=== PATIENT | female | born 1945 | race Caucasian/White ===

== ENCOUNTER 2019-12-09 11:06 | Outpatient (CLI) | payer MEDICARE, OTHER, SELFPAY ==
[2019-12-09 11:38] LABS: ABG PCO2 40.3 mmHg (35-45); ABG PH Result 7.43 (7.35-7.45); Arterial Blood Gas Hematocrit 41.7 % (37-47); Blood Gas Allen Test Pos; Blood Gas Sample Site Radial, right; Blood Gas Sample Type Arterial; HCO3 ABG 26.6 mmol/L (22-26); PO2 ABG 72.1 mmHg (80.0-100.0)
== END 2019-12-09 11:07 | disposition home or self-care (01) ==
PROVIDERS: Family Provider Family Medicine; PCP Family Medicine; Visit Provider Internal Medicine Critical Care Medicine
DX: R06.89 Other abnormalities of breathing (principal)
CPT/HCPCS: 36600; 82803

== ENCOUNTER 2019-12-25 07:22 | Day surgery (SDC) | payer MEDICARE, OTHER, SELFPAY ==
[2019-12-24 10:24] VITALS: BMI 33.8
[2019-12-25 07:47] VITALS: BP 126/68; PULSE 51; RESP 18; TEMP 36.9; O2SAT 94
[2019-12-25] MEDS: sodium chloride 0.9% 1,000 ML 30 ML IV (08:00)
--- NOTE | 2019-12-25 08:24 | ANES.PREANES ---
Pre-Anesthetic Assessment Pre-Anesthetic Assessment: Height/Weight: Height 1.57 m Weight 83.915 kg Temp Pulse Resp BP Pulse Ox 98.5 F 51 L 18 126/68 94 12/25/19 07:47 12/25/19 07:47 12/25/19 07:47 12/25/19 07:47 12/25/19 07:47 Preop Diagnosis: bronchiolitis Proposed Procedure: Operation Date: 12/25/19 08:50 Proposed Procedures p Bronchoscopy(Not Applicable) - Radha Marques MD Familial anesthetic complications: None Was Beta Aixa taken within 24 hours: Yes Last intake: Intake Last Liquid Date 12/24/19 Last Liquid Time 23:45 Last Solid Date 12/24/19 Last Solid Time 16:00 Social: Social History: No alcohol and No tobacco Exam: Pre-Anes Outpt Exam: alert, oriented x 3, clear to auscultation bilaterally and regular rate & rhythm Airway: Cervical ROM: WNL MP: 4 Dentition: Full Pulmonary: Pulmonary: COPD Comments: bronchiolitis- hemoptysis (4 yrs ago) CV/HEM: CV/HEM: HTN : : None reported Hepatic: Hepatic: None reported GI: GI: None reported Metabolic: Metabolic: None reported Musc/skel: Musc/skel: None reported Neuropsych: Neuropsych: None reported Comments: CN III palsy Anesthetic Plan: ASA status: IV Anesthesia: General Risk of > 500 ml blood loss (7ml/kg in children): No Meds/Allergies Current Medications: Current Medications Generic Name Dose Route Start Last Admin Trade Name Freq PRN Reason Stop Dose Admin Sodium Chloride 1,000 mls @ 30 ml s/hr 12/25/19 07:30 12/25/19 08:00 Sodium Chloride 0.9% IV 12/26/19 07:29 30 mls/hr .Q24H QUENTIN Administration PFSH Anesthesia PFSH: Medical History (Updated 12/07/19 @ 14:54 by Radha Marques MD) Bronchiolitis (Acute) COPD (chronic obstructive pulmonary disease) (Acute) Presence of surgical screw in left hand (Acute) Pulmonary hypertension, unspecified (Acute) Surgical History (Updated 12/07/19 @ 14:48 by Radha Marques MD) H/O foot surgery (Acute) H/O hand surgery (Acute) H/O tubal ligation (Acute) History of appendectomy (Acute) History of bladder surgery (Acute) History of cholecystectomy (Acute) History of hysterectomy (Acute) Social History Smoking and tobacco status: never smoked Alcohol intake: never Lives independently: Yes Household members: spouse Marital status: Current occupational status: retired History of recent travel: No Current gender identity: Female Data Anesthesia Cardiac Studies: No Data to Display
--- NOTE | 2019-12-25 09:30 | PM.HPUD ---
H&P update H&P Update: DATE OF SURGERY/PROCEDURE: 12/25/19 DATE H&P PERFORMED: 12/07/19 PLANNED PROCEDURE: Operation Date: 12/25/19 08:50 Proposed Procedures p Bronchoscopy(Not Applicable) - Radha Marques MD Full H&P HPI: PRIMARY INDICATION/DIAGNOSIS FOR SURGICAL PROCEDURE: Bronchoscopy with inspection of the airway with bronchoalveolar lavage HPI: This is a 74-year-old female coming in for a bronchoscopy procedure for persistent tree-in-bud appearance on chest CT scan. The goal is to rule out nontuberculous mycobacterial infection. There is no significant change since she was last seen in office. Medications/Allergies: Current Medications: Current Medications Generic Name Dose Route Start Last Admin Trade Name Freq PRN Reason Stop Dose Admin Sodium Chloride 1,000 mls @ 30 ml s/hr 12/25/19 07:30 12/25/19 08:00 Sodium Chloride 0.9% IV 12/26/19 07:29 30 mls/hr .Q24H QUENTIN Administration Perinent History: Medical/Surgical History: Medical History (Updated 12/07/19 @ 14:54 by Radha Marques MD) Bronchiolitis (Acute) COPD (chronic obstructive pulmonary disease) (Acute) Presence of surgical screw in left hand (Acute) Pulmonary hypertension, unspecified (Acute) Family History: Family History (Updated 12/04/19 @ 09:33 by Anne Barahona LPN) Mother Cancer Father CAD (coronary artery disease) Stroke Hypertension Social History: Social History Smoking and tobacco status: never smoked Alcohol intake: never Lives independently: Yes Household members: spouse Marital status: Current occupational status: retired History of recent travel: No Current gender identity: Female
--- NOTE | 2019-12-25 10:33 | PM.OP ---
Operative Report Date of procedure: December 25, 2019 Pre-op Diagnosis: bronchiolitis Post-op diagnosis: same Brief History: This is a 74-year-old female coming in for a bronchoscopy with inspection of the airway and bronchoalveolar lavage for diagnosis of bronchiolitis. The patient has evidence of airflow limitation on pulmonary function test and on CT scan has diffuse tree-in-bud appearance suggestive of bronchiolitis. She does not have any rheumatologic disease that is been diagnosed in the past. The concern is for nontuberculous mycobacterial infection. Procedure: Name of the procedure: Bronchoscopy with inspection of the airway and bronchoalveolar lavage Indication: Chronic exertional shortness of breath with tree-in-bud appearance on the chest CT scan Anesthesia: Monitored anesthesia care. Local anesthesia: 1% lidocaine instilled on the vocal cords, 3 mL, 1% lidocaine in the airway and constantine a total of 5 mL. Description of the procedure: Patient was brought to the OR and monitored anesthesia care was started by the anesthesia team. A timeout was performed. The bronchoscope was advanced through the mouth. The vocal cords were anesthetized with 1% lidocaine, 3 mL. The bronchoscope was then introduced through the vocal cords into the upper trachea. There was generalized erythema of the trachea. The tracheal mucosa was extremely friable and bled very easily with the touch from the bronchoscope. The constantine was sharp. The constantine in the right and left mainstem bronchi were anesthetized with 1% lidocaine. In a systematic way the bronchoscope was then advanced throughout bilateral lungs. The left lung was examined first. The left mainstem bronchus appeared erythematous and also showed evidence of petechial bleeding with minimal touch from the bronchoscope. The left upper lobe bronchus, lingular segment and left lower lobe bronchi all appeared to have erythematous and swollen mucosa. And the all blade very easily with touch from the bronchoscope. There are areas of petechial bleed throughout the left lung possibly secondary to the scope trauma. There was no endobronchial lesion identified. However the third or fourth segmental bronchi on the left upper lobe had significantly swollen mucosa and the bronchoscope could not be advanced more. The bronchoscope was then brought back to the constantine and the right lung was examined. The right upper lobe bronchus, right bronchus intermedius, right middle lobe and lower lobe bronchi were all appeared to have swollen mucosa and also bled very easily to touch from the bronchoscope. There was no endobronchial lesion. A bronchoalveolar lavage was performed from the medial segment of the right middle lobe. There was no petechial hemorrhage at the beginning of the bronchoalveolar lavage however when I withdrew the scope there where areas of petechial hemorrhage. 60 cc of normal saline was introduced in the medial segment of the right middle lobe. 20 cc of cloudy bronchoalveolar lavage aspirate. Sample: The specimen was sent for cell count and differential, Gram stain and culture, AFB stain and culture, fungal stain and culture and viral PCR. Complications: There is no immediate complications. Follow-up: The patient follow-up with me as outpatient. I will get back to the patient once I have more result available. Duration of the procedure: 8 minutes.
[2019-12-25 10:34] VITALS: BP 116/68; PULSE 61; RESP 16; TEMP 36.9; O2SAT 96
[2019-12-25 11:00] VITALS: BP 108/52; PULSE 50; RESP 17; O2SAT 96
[2019-12-25 13:37] LABS: Apprearance, Bronch Wash Cloudy (CLEAR); Color, Bronc Wash Colorless
[2019-12-25 13:38] LABS: Bronch Source Right Middle Lobe; PATH Referral Yes
[2019-12-25 13:46] LABS: Total Cells Counted Bronch 300
[2019-12-30 01:12] LABS: Adenovirus Not Detected (Not Detected); Human Metapneumovirus Not Detected (Not Detected); Human Parainflu Virus 1 Not Detected (Not Detected); Human Parainflu Virus 2 Not Detected (Not Detected); Human Parainflu Virus 3 Not Detected (Not Detected); Human Rsv A Not Detected (Not Detected); Influenza A Not Detected (Not Detected); Influenza B Not Detected (Not Detected); Rhinovirus/Enterovirus Not Detected (Not Detected)
== END 2019-12-25 12:00 | disposition home or self-care (01) ==
PROVIDERS: Family Provider Family Medicine; PCP Family Medicine; Visit Provider Internal Medicine Critical Care Medicine
PROC: 0BJ08ZZ Inspection of Tracheobronchial Tree, Via Natural or Artificial Opening Endoscopic (ICD-10-PCS; CPT 31622; principal; 2019-12-25 08:50)
DX: J21.9 Acute bronchiolitis, unspecified (principal); Z82.49 Family history of ischemic heart disease and other diseases of the circulatory system; I10 Essential (primary) hypertension; Z79.82 Long term (current) use of aspirin
CPT/HCPCS: 31624; 12345; 80500; 87015; 87070; 87102; 87116; 87205; 87206; 87801; 89050; J2704; J7030

== ENCOUNTER 2020-01-15 11:15 | Outpatient (CLI) | payer MEDICARE, OTHER, SELFPAY ==
--- NOTE | 2020-01-15 13:13 | PFTS_ITS ---
Date of Study:01/15/2020 Date of Dictation: MECHANICS: Forced vital capacity (FVC) is reduced. Forced expiratory volume in one second (FEV1) is reduced. FEV1/FVC is normal. FLOW VOLUME LOOP: Narrowed with mild scooping. LUNG VOLUMES: Total lung capacity (TLC) is not measured. Residual volume (RV) is not measured. DIFFUSING CAPACITY FOR CARBON MONOXIDE: Not measured. INTERPRETATION: The pulmonary function tests are consistent with moderate restriction. Scooping of the flow volume loop is suggestive of obstruction. MTDD
== END 2020-01-15 11:16 | disposition home or self-care (01) ==
LOC: RT 06-13 13:02
PROVIDERS: PCP Family Medicine; Visit Provider Internal Medicine Critical Care Medicine
DX: J44.9 Chronic obstructive pulmonary disease, unspecified (principal); R06.89 Other abnormalities of breathing
CPT/HCPCS: 94010

== ENCOUNTER 2020-04-26 06:00 | Outpatient (RCR) | payer MEDICARE, OTHER, SELFPAY | END 2020-05-24 23:59 | disposition home or self-care (01) | LOC: APT 06:00 | PROVIDERS: PCP Family Medicine; Referring Provider Family Medicine; Visit Provider Family Medicine | DX: M75.101 Unspecified rotator cuff tear or rupture of right shoulder, not specified as traumatic (principal) | CPT/HCPCS: 97110; 97140; 97162 ==

== ENCOUNTER 2020-05-06 12:38 | Outpatient (CLI) | payer MEDICARE, OTHER, SELFPAY ==
--- NOTE | 2020-05-06 13:00 | CT_ITS ---
WS: [id number] CT CHEST TECHNIQUE: Noncontrast CT of the chest with coronal and sagittal reformatted images. CLINICAL INFORMATION: Shortness of breath COMPARISON: CTA chest July 10, 2019 DLP: 709.[address] scans at [facility] use at least one of these dose optimization techniques: automat ed exposure control; mA and/or kV adjustment per patient size (includes targeted exams where dose is matched to clinical indication); or iterative reconstruction. FINDINGS: Mild chronic emphysematous changes. Stable tree-in-bud opacities similar in appearance compared to pr evious more prominent in the right lower lobe, left upper lobe laterally along the fissure, and righ t middle lobe. Right middle lobe tree-in-bud infiltrates are improved from previous. New tree-in-bud infiltrates in the left lower lobe posteriorly. Calcified granulomas left lower lobe. A few unchanged subcentimeter subpleural nodules. No mediastinal or hilar lymphadenopathy. Normal th yroid gland. Small esophageal hiatal hernia. Splenic granulomas. Adrenal glands are normal. Fatty atrophy of the pancreas. No axillary lymphadenopathy. CT/CT chest wo con [id number] IMPRESSION: 1. Mild chronic emphysematous changes. 2. Tree-in-bud opacities are similar in appearance to previous slightly improv ed in the right middle lobe. 3. New patchy tree-in-bud opacities in the left lower lobe posteriorly. 4. No mediastinal or hilar lymphadenopathy. 5. No other significant changes from previous. 6. Small esophageal hiatal hernia.
== END 2020-05-06 12:39 | disposition home or self-care (01) ==
LOC: RADWPI 12:43
PROVIDERS: PCP Family Medicine; Visit Provider Internal Medicine Critical Care Medicine
DX: J21.9 Acute bronchiolitis, unspecified (principal); R06.02 Shortness of breath; K44.9 Diaphragmatic hernia without obstruction or gangrene
CPT/HCPCS: 71250

== ENCOUNTER 2020-05-25 06:00 | Outpatient (RCR) | payer MEDICARE, OTHER, SELFPAY | END 2020-06-24 23:59 | disposition home or self-care (01) | LOC: APT 06:00 | PROVIDERS: PCP Family Medicine; Referring Provider Family Medicine; Visit Provider Family Medicine | DX: M75.101 Unspecified rotator cuff tear or rupture of right shoulder, not specified as traumatic (principal) | CPT/HCPCS: 97110 ==

== ENCOUNTER 2021-03-14 12:41 | Outpatient (CLI) | payer MEDICARE, OTHER, SELFPAY ==
--- NOTE | 2021-03-14 12:50 | XRR_ITS ---
PROCEDURE INFORMATION: Exam: XR Right Shoulder Exam date and time: 03/14/2021 1:21 PM Age: 75 years old Clinical indication: Condition or disease; Osteoarthritis; Shoulder; Right; Additional info: R shoulder osteoarthritis TECHNIQUE: Imaging protocol: XR Right shoulder. Views: 2 or more views. COMPARISON: No relevant prior studies available. FINDINGS: Bones/joints: There is no evidence for acute fracture or malalignment. There is mild joint space narrowing at the right acromioclavicular joint. Soft tissues: Normal. XR/XR shoulder RT min 2V* [id number] IMPRESSION: No acute findings. If there is desire for further evaluation, a MRI could be performed.
== END 2021-03-14 12:42 | disposition home or self-care (01) ==
PROVIDERS: PCP Family Medicine; Visit Provider Family Medicine
DX: M19.011 Primary osteoarthritis, right shoulder (principal)
CPT/HCPCS: 73030

== ENCOUNTER 2021-05-04 14:51 | Outpatient (CLI) | payer MEDICARE, OTHER, SELFPAY ==
--- NOTE | 2021-05-04 15:15 | MR_ITS ---
WS: [id number] MRI RIGHT SHOULDER HISTORY: RIGHT SHOULDER PAIN COMPARISON: Shoulder radiograph 03/14/2021 TECHNIQUE: Multiplanar sequences of the shoulder joint are submitted. Mild AC joint hypertrophy. Osteophyte and soft tissue encroachment upon the supraspinatus tendon. The re is a small amount of fluid in the subacromial and subdeltoid bursa. No os acromion. Partial sublux ation of the biceps tendon. Biceps tendon is small caliber with increased fluid in the tendon sheath. Insertion site tear involving the inferior articular surface. No retraction of the tendon. There is t endinopathy. There is an osteophyte encroaching upon the supraspinatus tendon over the superior humer al head. This osteophyte is from the acromion. Small amount of fluid in the subscapularis recess. Mil d encroachment upon the subscapularis tendon by narrowing of the coracohumeral interval. Mild glenohumeral joint space narrowing. Mild loss of the cartilage at the glenoid MR/MR shoulder RT wo con* [id number] IMPRESSION: 1. Partial insertion site tear inferior surface of the supraspinatus with mild muscle atrophy. 2. Moderate glenohumeral joint space osteoarthritis with loss of cartilage. 3. Moderate tendinopathy of the supraspinatus. 4. Mild AC joint hypertrophy. 5. Moderate encroachment and narrowing of the coracohumeral interval and also the acromiohumeral interval.
== END 2021-05-04 14:52 | disposition home or self-care (01) ==
LOC: RADSHAW 14:55
PROVIDERS: PCP Family Medicine; Visit Provider Family Medicine
DX: M25.511 Pain in right shoulder (principal); M19.011 Primary osteoarthritis, right shoulder
CPT/HCPCS: 73221

== ENCOUNTER 2021-05-31 06:00 | Outpatient (RCR) | payer MEDICARE, OTHER, SELFPAY | END 2021-06-24 23:59 | disposition home or self-care (01) | LOC: APT 06:00 | PROVIDERS: PCP Family Medicine; Referring Provider Specialist; Visit Provider Specialist | DX: M25.511 Pain in right shoulder (principal) | CPT/HCPCS: 97110; 97112; 97161 ==

== ENCOUNTER 2021-06-25 06:00 | Outpatient (RCR) | payer MEDICARE, OTHER, SELFPAY | END 2021-07-25 23:59 | disposition home or self-care (01) | LOC: APT 06:00 | PROVIDERS: PCP Family Medicine; Referring Provider Specialist; Visit Provider Specialist | DX: M25.511 Pain in right shoulder (principal) | CPT/HCPCS: 97110; 97112; 97530 ==

== ENCOUNTER 2021-07-26 06:00 | Outpatient (RCR) | payer MEDICARE, OTHER, SELFPAY | END 2021-08-24 23:59 | disposition home or self-care (01) | LOC: APT 06:00 | PROVIDERS: PCP Family Medicine; Referring Provider Specialist; Visit Provider Specialist | DX: M75.101 Unspecified rotator cuff tear or rupture of right shoulder, not specified as traumatic (principal) | CPT/HCPCS: 97110 ==

== ENCOUNTER 2021-08-26 20:33 | Emergency (ER) | payer MEDICARE, OTHER, SELFPAY ==
--- NOTE | 2021-08-26 20:39 | ED_ITS ---
HPI - SOB/Dyspnea General: Chief Complaint: COVID symptoms Stated Complaint: SOB\Fever\Coughing Time Seen by Provider: 08/26/21 20:39 History of Present Illness: HPI Narrative: Ms. Knight is a 75-year-old lady with history of bronchiectasis who presents emergency department due to shortness of breath. She does have prior COVID-19 which was relatively mild and has since been vaccinated. No known sick contacts. Approximately 1 week ago she noticed some mild tonsillar discomfort which is since resolved. She subsequently developed right anterior chest pain that was worse at night. Over the past 5 to 7 days she has had progressive worsening of shortness of breath, nonproductive cough, and generalized malaise. Symptoms are worse with exertion but do not go with rest at this point. Review of Systems General: Reports: 10 or more systems reviewed and unremarkable except in HPI and below PFSH ED PFSH: Medical History (Updated 08/26/21 @ 23:12 by Yousuf Baig MD) Bronchiolitis Presence of surgical screw in left hand Pulmonary hypertension, unspecified Surgical History H/O foot surgery H/O hand surgery H/O tubal ligation History of appendectomy History of bladder surgery History of cholecystectomy History of hysterectomy Family History Mother Cancer Father CAD (coronary artery disease) Stroke Hypertension Social History Smoking and tobacco status: never smoked Second hand smoke exposure: No Smoking risk assessment/counseling performed?: No Alcohol intake: never Desire information about alcohol rehabilitation?: No Counseling given: No Desire information about substance/drug rehabilitation?: No Counseling given: No Lives independently: Yes Household members: spouse Marital status: Current occupational status: retired History of recent travel: No Current gender identity: Female Physical Exam Narrative: EXAM NARRATIVE: GENERAL/CONSTITUTIONAL -mildly ill-appearing. No acute distress. Eyes - PERRL, no conjunctival injection ENMT - Atraumatic external nose and ears. Moist mucous membranes NECK - supple. trachea midline CARDIOVASCULAR - regular rate and rhythm. Peripheral pulses 2+ and equal RESPIRATORY -diminished to auscultation bilaterally. Increased work of breathing. ABDOMEN/GI - Nontender. Nondistended. MSK - Extremities without obvious deformity or tenderness to palpation SKIN - Warm, Dry NEURO - alert and appropriately oriented. strength and sensation intact. Moves all extremities equally. PSYCH - Appropriate mood and affect Course ED course: - Patient was seen and evaluated by me at bedside - Patient placed on cardiac monitors, IV access obtained - Initial evaluation notable for mildly ill appearance, increased respiratory effort. No acute distress. Nontoxic - Labs notable for leukocytosis, mild dehydration on metabolic panel. Delta troponin negative. - Imaging notable for pneumonia -Antibiotics ordered. Patient is well-appearing and has close outpatient follow-up - Upon serial reexamination after treatment the patient was improved - Based on patient history, evaluation, labs, and imaging as interpreted the most likely cause of the patient's condition is pneumonia - The results of ED evaluation were discussed with the patient including prescriptions and/or symptomatic cares (if applicable) including appropriate and responsible use, followup plan, and return precautions. The patient verbalized understanding and felt safe for discharge. - Patient discharged in satisfactory condition. Vital Signs: Vital signs: Vital Signs Temperature 99.2 F 08/26/21 22:34 Pulse Rate 67 08/27/21 00:49 Respiratory Rate 29 H 08/27/21 00:49 Blood Pressure 115/43 08/27/21 00:49 Pulse Oximetry 94 08/27/21 00:49 MDM - SOB/Dyspnea Medical Records: Attestation: I reviewed the patient's medical records. Lab Data: Attestation: I reviewed the patient's lab results. Labs: Lab Results 08/26/21 08/26/21 08/26/21 21:29 21:29 21:29 WBC 16.6 10^3/uL H 10 ^3/uL (4.0-10.0) RBC 3.74 10^6/uL L 10 ^6/uL (4.1-5.3) Hgb 11.6 g/dL g/dL (11.5-15.3) Hct 34.9 % L % (37.0-47.0) MCV 93.3 fl fl (81-99) MCH 31.0 pg pg (28.0-34.0) MCHC 33.2 g/dL g/dL (30.0-36.0) RDW 12.0 % L % (12.1-15.1) Plt Count 278 10^3/cmm 10^3 /cmm (130-400) MPV 10.3 fL fL (7.4-10.4) Neut % (Auto) 77.6 % % Lymph % (Auto) 13.5 % % [place] % (Auto) 6.8 % % Eos % (Auto) 1.2 % % Baso % (Auto) 0.3 % % Neut # (Auto) 12.85 10^3/uL H 1 0^3/uL (1.8-7.7) Lymph # (Auto) 2.2 10^3/uL 10^3/ uL (0.8-4.8) [place] # (Auto) 1.1 10^3/uL H 10^ 3/uL (0.2-0.9) Eos # (Auto) 0.2 10^3/uL 10^3/ uL (0.0-0.8) Baso # (Auto) 0.1 10^3/uL 10^3/ uL (0.0-0.1) Nucleated RBC % (a uto) 0 % % Nucleated RBCs # 0.0 /100WBC /100W BC Sodium 134 mmol/L L mmol /L (136-145) Potassium 3.2 mmol/L L mmol /L (3.5-5.1) Chloride 97 mmol/L L mmol/ L (98-107) Carbon Dioxide 24 mmol/L mmol/L (22-29) Anion Gap 16.2 (5-19) BUN 21 mg/dL mg/dL (8-23) Creatinine 0.8 mg/dL mg/dL (0.5-0.9) GFR Calculation Not Reportable Glucose 150 mg/dL H mg/dL (65-115) Calculated Osmolal ity 284 mOsm/kg L mOs m/kg (285-295) Lactic Acid 0.8 mmol/L mmol/L (0.5-2.2) Calcium 8.9 mg/dL mg/dL (8.5-10.5) Total Bilirubin 0.4 mg/dL mg/dL (0.15-1.2) AST 16 U/L U/L (0-32) ALT 21 U/L U/L (0-33) Alkaline Phosphata se 123 IU/L H IU/L (35-105) Troponin T Baselin e Troponin T 120 Min [place] Delta Troponin T C-Reactive Protein 203.9 mg/L H mg/L (0.0-4.9) NT-Pro-B Natriuret Pep 734 pg/mL H pg/mL (0-125) Total Protein 6.8 g/dL g/dL (6.6-8.7) Albumin 3.6 g/dL g/dL (3.5-5.2) Globulin 3.2 g/dL g/dL (1.3-4.6) Lipase 11 U/L L U/L (13-60) Procalcitonin 0.09 ng/mL ng/mL (0-0.5) TSH 4.36 uIU/mL H uIU /mL (0.27-4.20) Free T4 08/26/21 08/26/21 08/26/21 21:29 21:29 23:26 WBC RBC Hgb Hct MCV MCH MCHC RDW Plt Count MPV Neut % (Auto) Lymph % (Auto) [place] % (Auto) Eos % (Auto) Baso % (Auto) Neut # (Auto) Lymph # (Auto) [place] # (Auto) Eos # (Auto) Baso # (Auto) Nucleated RBC % (a uto) Nucleated RBCs # Sodium Potassium Chloride Carbon Dioxide Anion Gap BUN Creatinine GFR Calculation Glucose Calculated Osmolal ity Lactic Acid Calcium Total Bilirubin AST ALT Alkaline Phosphata se Troponin T Baselin e 19 ng/L H ng/L (0-10) Troponin T 120 Min [place] 15.82 ng/L H ng/L (0-10) Delta Troponin T -3.18 ABS# L ABS# (0-10) C-Reactive Protein NT-Pro-B Natriuret Pep Total Protein Albumin Globulin Lipase Procalcitonin TSH Free T4 1.18 ng/dL ng/dL (0.82-1.77) EKG Data^: EKG 1: Attestation: I personally reviewed and interpreted this EKG as follows: EKG Interpretation Date: 08/26/21 EKG interpretation time: 21:13 Interpretation: Twelve-lead EKG shows a regular sinus rhythm at a rate of 63. WI interval 152, QRS duration 89, QTc 432. Normal axis. Interpretation: Sinus rhythm EKG 2: Attestation: I personally reviewed and interpreted this EKG as follows: EKG Interpretation Date: 08/26/21 EKG interpretation time: 23:35 Interpretation: Twelve-lead EKG shows a regular sinus rhythm at a rate of 67. WI interval 154, QRS duration 81, QTc 375. Normal axis. Interpretation: Sinus rhythm Discharge Plan Discharge Patient Disposition: Home Clinical Impression: Pneumonia Condition: Stable Prescriptions: New Augmentin 875-125 mg tablet 1 tab PO BID Qty: 19 RF: 0 doxycycline hyclate 100 mg capsule 100 mg PO BID 10 Days Qty: 19 RF: 0 No Action amlodipine 5 mg tablet 5 mg PO BID RF: 0 aspirin [Adult Aspirin Regimen] 81 mg tablet,delayed release (DR/EC) 81 mg PO ONCE RF: 0 atorvastatin 10 mg tablet 10 mg PO ONCE RF: 0 carvedilol 25 mg tablet 25 mg PO BID RF: 0 citalopram 20 mg tablet 20 mg PO ONCE RF: 0 losartan-hydrochlorothiazide 100-12.5 mg tablet 1 tab PO ONCE RF: 0 Incruse Ellipta 62.5 mcg/actuation blister with device 1 inh inhalation DAILY RF: 0 bumetanide 0.5 mg tablet 0.5 mg PO DAILY PRN (Reason: edema) Qty: 90 RF: 0 omeprazole 40 mg capsule,delayed release(DR/EC) See Rx Instructions .ROUTE .COMPLEX Qty: 90 RF: 2 Discharge Orders: Discharge ED (Routine); Ordered 08/27/21 Ordered By: Tobias Mcdonald Discharge Diet: Usual diet Discharge Activity: Resume usual activity Patient Instructions: Pneumonia (ED) Activity Restrictions/Additional Instructions: Thank you for visiting the emergency department. You were seen and evaluated for shortness of breath. You are found to have pneumonia which will be treated with antibiotics. Please follow-up with your primary care provider within 1 week. Please return the emergency department for worsening symptoms or anything else that you are concerned about and feel needs emergency department evaluation. Coding Level of Care Code ED Tech Ed Teacher for Matt Grover
[2021-08-26 20:50] VITALS: BP 154/60; PULSE 73; RESP 25; TEMP 37.3; O2SAT 94; BMI 32.9
--- NOTE | 2021-08-26 21:00 | XRR_ITS ---
PROCEDURE INFORMATION: Exam: XR Chest Exam date and time: 08/26/2021 9:00 PM Age: 75 years old Clinical indication: Cough and fever and shortness of breath; Patient HX: C/O cough, fever, SOB since Saturday TECHNIQUE: Imaging protocol: XR of the chest. Views: 1 view. COMPARISON: CT chest wo con [id number] 05/06/2020 12:57 PM FINDINGS: Lungs: Right upper lobe pneumonic infiltrate. Several left upper lobe calcified granulomas similar to prior exam. Pleural spaces: Unremarkable. No pleural effusion. No pneumothorax. Heart/Mediastinum: Unremarkable. No cardiomegaly. Bones/joints: Unremarkable. XR/XR chest 1V portable [id number] IMPRESSION: 1. Right upper lobe pneumonic infiltrate. 2. Several left upper lobe calcified granulomas similar to prior exam.
--- NOTE | 2021-08-26 21:01 | ECG_ITS ---
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
[2021-08-26 21:06] VITALS: BP 137/47; PULSE 64; RESP 24; O2SAT 94
[2021-08-26 21:08] VITALS: O2SAT 94
[2021-08-26 21:41] LABS: Basophils # 0.1 10^3/uL (0.0-0.1); Basophils % 0.3 %; Eosinophils # 0.2 10^3/uL (0.0-0.8); Eosinophils % 1.2 %; Hematocrit 34.9 % (37.0-47.0); Hemoglobin 11.6 g/dL (11.5-15.3); Lymphocytes # 2.2 10^3/uL (0.8-4.8); Lymphocytes % 13.5 %; Mean Corpuscular HGB Conc 33.2 g/dL (30.0-36.0); Mean Corpuscular Volume 93.3 fl (81-99); Mean Platelet Volume 10.3 fL (7.4-10.4); Monocytes # 1.1 10^3/uL (0.2-0.9); Monocytes % 6.8 %; Neutrophils # 12.85 10^3/uL (1.8-7.7); Neutrophils % 77.6 %; Nucleated Red Blood Cells % 0 %; Platelet Count 278 10^3/cmm (130-400); Red Blood Count 3.74 10^6/uL (4.1-5.3); White Blood Count 16.6 10^3/uL (4.0-10.0)
[2021-08-26 21:59] LABS: Lactic Sepsis W/Reflex 0.8 mmol/L (0.5-2.2)
[2021-08-26 22:02] LABS: Troponin(5th) Baseline 19 ng/L (0-10)
[2021-08-26 22:10] LABS: NT Pro B Type Natriuretic Pept 734 pg/mL (0-125); Procalcitonin 0.09 ng/mL (0-0.5); Thyroid Stimulating Hormone 4.36 uIU/mL (0.27-4.20)
[2021-08-26 22:21] LABS: Alanine Aminotransferase 21 U/L (0-33); Albumin Level 3.6 g/dL (3.5-5.2); Alkaline Phosphatase 123 IU/L (35-105); Anion Gap 16.2 (5-19); Aspartate Amino Transferase 16 U/L (0-32); Blood Urea Nitrogen 21 mg/dL (8-23); C Reactive Protein 203.9 mg/L (0.0-4.9); Calcium 8.9 mg/dL (8.5-10.5); Carbon Dioxide 24 mmol/L (22-29); Chloride 97 mmol/L (98-107); Globulin 3.2 g/dL (1.3-4.6); Glucose 150 mg/dL (65-115); Lipase 11 U/L (13-60); Osmolality Calculated 284 mOsm/kg (285-295); Potassium 3.2 mmol/L (3.5-5.1); Sodium 134 mmol/L (136-145); Total Bilirubin 0.4 mg/dL (0.15-1.2); Total Protein 6.8 g/dL (6.6-8.7)
[2021-08-26 22:34] VITALS: BP 140/59; PULSE 66; RESP 27; TEMP 37.3; O2SAT 94
--- NOTE | 2021-08-26 23:01 | ECG_ITS ---
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
[2021-08-26] MEDS: potassium chloride ER 20 mEq Tablet 40 MEQ PO (23:18)
[2021-08-26] MEDS: doxycycline 100 mg Tablet PO (23:19)
[2021-08-26] MEDS: amoxicillin-clav 875-125 mg Tablet 1 TAB PO (23:19)
[2021-08-26] MEDS: lactated ringers 1,000 ML 999 ML IV (23:21)
[2021-08-26 23:41] LABS: Free T4 Free Thyroxine 1.18 ng/dL (0.82-1.77)
[2021-08-27 00:02] VITALS: BP 124/48; PULSE 97; RESP 17; O2SAT 97
[2021-08-27 00:05] LABS: Troponin 5 2HR 15.82 ng/L (0-10)
[2021-08-27 00:15] LABS: Troponin 5 2HR Delta -3.18 ABS# (0-10)
[2021-08-27 00:49] VITALS: BP 115/43; PULSE 67; RESP 29; O2SAT 94
== END 2021-08-27 00:40 | disposition home or self-care (01) ==
PROVIDERS: Emergency Provider Emergency Medicine
DX: J18.9 Pneumonia, unspecified organism (principal); Z79.4 Long term (current) use of insulin
CPT/HCPCS: 71045; 80053; 83605; 83690; 83880; 84145; 84439; 84443; 84484; 85025; 86140; 93005; 96360; 99284

== ENCOUNTER → 2022-02-07 09:19 | Outpatient (BNVA) | payer MEDICARE, OTHER, SELFPAY | PROVIDERS: PCP Family Medicine; Visit Provider Internal Medicine Critical Care Medicine | DX: J21.9 Acute bronchiolitis, unspecified (principal); R60.9 Edema, unspecified; K21.9 Gastro-esophageal reflux disease without esophagitis; Z86.16 Personal history of COVID-19; K44.9 Diaphragmatic hernia without obstruction or gangrene | CPT/HCPCS: 99213 ==

== ENCOUNTER → 2022-04-11 09:23 | Outpatient (BNVA) | payer MEDICARE, OTHER, SELFPAY | PROVIDERS: PCP Family Medicine; Visit Provider Family Medicine | DX: R60.9 Edema, unspecified (principal); I27.20 Pulmonary hypertension, unspecified; E78.5 Hyperlipidemia, unspecified; I10 Essential (primary) hypertension | CPT/HCPCS: 80053; 80061; 83880 ==

== ENCOUNTER 2022-05-23 13:32 | Outpatient (CLI) | payer MEDICARE, OTHER, SELFPAY ==
--- NOTE | 2022-05-23 13:34 | CT_ITS ---
WS: [id number] CT ABDOMEN PELVIS TECHNIQUE: Contrast-enhanced CT of the abdomen and pelvis with coronal and sagittal reformatted image s. CLINICAL INFORMATION: LLQ ABDOMINAL PAIN COMPARISON: 2006 DLP: 1018.[address] scans at [facility] use at least one of these dose optimization techniques: automated e xposure control; mA and/or kV adjustment per patient size (includes targeted exams where dose is matc hed to clinical indication); or iterative reconstruction. FINDINGS: Mild diffuse fatty infiltration liver. Normal portal vein and splenic vein. Fatty atrophy of the panc reas. Splenic granulomas. Small esophageal hiatal hernia. Fluid distended stomach. Mild circumferenti al wall thickening with luminal narrowing at the splenic flexure. This may be due to spasm but underl pedro lesion not excluded. Recommend further evaluation with colonoscopy. Patchy tree-in-bud micronodular infiltrates in the RIGHT lower lobe laterally. Similar-appearing opac ities in the lingula and LEFT lower lobe posteriorly likely inflammatory. Adrenal glands are normal. Normal renal parenchymal enhancement. Prominent extrarenal pelvis bilatera lly. No hydronephrosis. Calcification measuring 3 mm near the LEFT UPJ may represent tiny LEFT UVJ ca lculus versus adjacent phlebolith. Ureters difficult to visualize in this area. No significant ureter ectasis. Normal caliber abdominal aorta. Mild aortic calcification. Celiac and SMA are patent. No para-aortic lymphadenopathy. Normal sigmoid colon. Tiny fat-containing umbilical hernia. No inguinal lymphadenopathy. Grade 1 ante rolisthesis L3 on L4 and L4 on L5 with mild disc space narrowing. Benign-appearing bone islands invol ving the LEFT sacrum. CT/CT abdomen pelvis w con* [id number] IMPRESSION: 1. Patchy tree-in-bud type infiltrates involving the RIGHT greater than LEFT l ower lobes and lingula likely inflammatory. 2. Prior cholecystectomy and hysterectomy. 3. Mild circumferential wall thickening with luminal narrowing at the splenic flexure. This may be due to spasm but underlying lesion not excluded. Recommend further evaluation with colonoscopy to exclude neoplasm. 4. 3 mm calculus or adjacent phlebolith at the LEFT UVJ. Recommend correlation for hematuria or flank pain. Ureter is difficult to visualize in this area. No hydronephrosis. 5. Normal bilateral renal parenchymal enhancement. 6. Grade 1 anterolisthesis L3 on L4 and L4 on L5. 7. Prominent central disc protrusions L1-L2 and L2-L3 with mild to moderate ce ntral canal stenosis. Moderate central canal stenosis L3-L4 and severe central canal stenosis L4-L5. This can be followed up with MRI.
[2022-05-23] MEDS: barium sulfate 450 mL Oral Susp PO (14:22)
[2022-05-23] MEDS: iodixanol 320 mg/mL 100mL Btl IV (15:08)
== END 2022-05-23 13:33 | disposition home or self-care (01) ==
LOC: RAD 13:33
PROVIDERS: PCP Family Medicine; Visit Provider Family Medicine
DX: R10.32 Left lower quadrant pain (principal)
CPT/HCPCS: 74177

== ENCOUNTER → 2022-06-05 13:59 | Outpatient (BNVA) | payer MEDICARE, OTHER, SELFPAY | PROVIDERS: PCP Family Medicine; Visit Provider Surgery | DX: K21.9 Gastro-esophageal reflux disease without esophagitis (principal); R10.9 Unspecified abdominal pain; K59.00 Constipation, unspecified | CPT/HCPCS: 99203 ==

== ENCOUNTER 2022-06-21 05:53 | Day surgery (SDC) | payer MEDICARE, OTHER, SELFPAY ==
[2022-06-19 09:27] VITALS: BMI 32.0
[2022-06-21 06:32] VITALS: BP 140/67; PULSE 584; RESP 16; TEMP 36.3; O2SAT 94
[2022-06-21] MEDS: sodium chloride 0.9% 1,000 ML 30 ML IV (06:38)
--- NOTE | 2022-06-21 06:52 | P.ANESASSM_ITS ---
Pre-Anesthetic Assessment Height/Weight: Height 1.57 m Weight 79.379 kg Temp Pulse Resp BP Pulse Ox O2 Del Method 97.4 F L 584 H 16 140/67 94 06/21/22 06:32 06/21/22 06:32 06/21/22 06:32 06/21/22 06:32 06/21/22 06:32 06/21/22 06:32 Preop Diagnosis: constipation, abdominal pain, GERD Operation Date: 06/21/22 07:30 Proposed Procedures p EGD and colonoscopy [id number],R10.9,K59.00,K21.9(Not Applicable) - DO tameka Felton Colonoscopy(Not Applicable) - Francisco Rojas DO Familial anesthetic complications: none Was Beta Aixa taken within 24 hours: Yes Last intake: Intake Last Liquid Date 06/20/22 Last Liquid Time 20:00 Last Solid Date 06/19/22 Last Solid Time 18:00 Social No alcohol and No tobacco Airway Submandibular: within normal limits Cervical ROM: within normal limits Mallampati: Class II Dentition: full Pulmonary Chronic Obstructive Pulmonary Disease and Shortness of Breath CV/HEM Hypertension None reported Hepatic None reported GI Gastroesophageal Reflux Disease and Hiatal Hernia Metabolic Hyperlipidemia [facility] [place] None reported Neuropsych None reported Anesthetic Plan ASA status: 3 Anesthesia: MAC Medications/Allergies Home Medications Medication Instructions Recorded Confirmed Last Taken Type aspirin 81 mg tablet,delayed 81 mg PO ONCE 12/04/19 06/21/22 06/18/22 History release (Adult Aspirin Regimen) atorvastatin 10 mg tablet 10 mg PO ONCE 12/04/19 06/21/22 06/20/22 History carvedilol 25 mg tablet 25 mg PO BID 12/04/19 06/21/22 06/21/22 History citalopram 20 mg tablet 20 mg PO ONCE 12/04/19 06/21/22 06/20/22 History hydrochlorothiazide 12.5 mg capsule 12.5 mg PO DAILY 06/19/22 06/21/22 06/20/22 History losartan 50 mg tablet 50 mg PO DAILY 06/19/22 06/21/22 06/20/22 History omeprazole 40 mg capsule,delayed 40 mg PO DAILY 06/19/22 06/21/22 06/18/22 History release pantoprazole 40 mg tablet,delayed 40 mg PO BID 6 weeks #84 tabs 06/21/22 Unknown Rx release (Protonix) Allergies Allergy/AdvReac Type Severity Reaction Status Date / Time No Known Allergies Allergy Verified 06/21/22 06:22 Current Medications Generic Name Dose Route Start Last Admin Trade Name Alyssa PRN Reason Stop Dose Admin Sodium Chloride 1,000 mls @ 30 mls/hr 06/21/22 06:00 06/21/22 06:38 Sodium Chloride 0.9% IV 06/22/22 05:59 30 mls/hr .Q24H QUENTIN Administration PFSH Anesthesia Medical History (Updated 06/05/22 @ 14:53 by Francisco Rojas DO) Bronchiolitis Presence of surgical screw in left hand Pulmonary hypertension, unspecified Surgical History H/O foot surgery H/O hand surgery H/O tubal ligation History of appendectomy History of bladder surgery History of cholecystectomy History of hysterectomy Family History Mother Cancer Father CAD (coronary artery disease) Stroke Hypertension Social History Smoking and tobacco status: never smoked Second hand smoke exposure: No Smoking risk assessment/counseling performed?: No Alcohol intake: never Desire information about alcohol rehabilitation?: No Counseling given: No Desire information about substance/drug rehabilitation?: No Counseling given: No Lives independently: Yes Household members: spouse Marital status: Current occupational status: retired History of recent travel: No Current gender identity: Female Data Anesthesia Cardiac Studies: No Data to Display
--- NOTE | 2022-06-21 07:00 | W.PM.OPSUD ---
Surgery/Procedure H&P Update DATE OF PROCEDURE: June 21, 2022 DATE H&P PERFORMED: 06/05/22 CHANGES TO PREVIOUS DOCUMENTATION: NONE PREOP DIAGNOSIS: constipation, abdominal pain, GERD PLANNED PROCEDURE: Operation Date: 06/21/22 07:30 Proposed Procedures p EGD and colonoscopy [id number],R10.9,K59.00,K21.9(Not Applicable) - DO tameka Felton Colonoscopy(Not Applicable) - Francisco Rojas DO
[2022-06-21 07:57] VITALS: BP 135/56; PULSE 61; RESP 16; TEMP 36.1; O2SAT 91
[2022-06-21 08:11] VITALS: BP 132/68; PULSE 64; RESP 18; O2SAT 94
--- NOTE | 2022-06-21 12:46 | ANE.PACU2 ---
Inpatient post-anesthesia follow up: Airway intact: Yes Vital signs: Temperature 97.0 F Pulse Rate 64 Respiratory Rate 18 Blood Pressure 132/68 Pulse Oximetry 94 Oxygen Delivery Me thod Nasal Cannula Oxygen Flow Rate 4 Fraction of Inspir ed Oxygen Hydration adequate: Yes Nausea and vomiting: No Pain level: 1 Mental status: Baseline
== END 2022-06-21 08:34 | disposition home or self-care (01) ==
PROVIDERS: PCP Family Medicine; Visit Provider Surgery
PROC: 0DJ08ZZ Inspection of Upper Intestinal Tract, Via Natural or Artificial Opening Endoscopic (ICD-10-PCS; CPT 43235; principal; 2022-06-21 07:30)
PROC: 0DJD8ZZ Inspection of Lower Intestinal Tract, Via Natural or Artificial Opening Endoscopic (ICD-10-PCS; CPT 45378; 2022-06-21 07:30)
DX: K59.00 Constipation, unspecified (principal); R10.9 Unspecified abdominal pain; K21.9 Gastro-esophageal reflux disease without esophagitis; J44.9 Chronic obstructive pulmonary disease, unspecified; I10 Essential (primary) hypertension; E78.5 Hyperlipidemia, unspecified; Z79.82 Long term (current) use of aspirin
CPT/HCPCS: 43235; 45378; J2704; J3490; J7030

== ENCOUNTER → 2022-10-11 09:18 | Outpatient (BNVA) | payer MEDICARE, OTHER, SELFPAY | PROVIDERS: PCP Family Medicine; Visit Provider Family Medicine | DX: E78.5 Hyperlipidemia, unspecified (principal); I10 Essential (primary) hypertension; K21.9 Gastro-esophageal reflux disease without esophagitis | CPT/HCPCS: 80053; 80061 ==

== ENCOUNTER → 2022-10-17 10:16 | Outpatient (BNVA) | payer MEDICARE, OTHER, SELFPAY | PROVIDERS: PCP Family Medicine; Visit Provider Family Medicine | DX: R35.0 Frequency of micturition (principal) | CPT/HCPCS: 81000 ==

== ENCOUNTER → 2022-11-29 12:24 | Outpatient (BNVA) | payer MEDICARE, OTHER, SELFPAY | PROVIDERS: PCP Family Medicine; Visit Provider Internal Medicine Pulmonary Disease | DX: R06.2 Wheezing (principal); R06.02 Shortness of breath; J21.9 Acute bronchiolitis, unspecified; R60.9 Edema, unspecified; K21.9 Gastro-esophageal reflux disease without esophagitis; Z77.22 Contact with and (suspected) exposure to environmental tobacco smoke (acute) (chronic) | CPT/HCPCS: 36415; 82785; 85025; 86003; 99214 ==

== ENCOUNTER → 2023-03-04 09:51 | Outpatient (BNVA) | payer MEDICARE, OTHER, SELFPAY | PROVIDERS: PCP Family Medicine; Visit Provider Internal Medicine Pulmonary Disease | DX: J21.9 Acute bronchiolitis, unspecified (principal); R13.10 Dysphagia, unspecified; R60.9 Edema, unspecified | CPT/HCPCS: 99214 ==

== ENCOUNTER 2023-03-07 09:58 | Outpatient (CLI) | payer MEDICARE, OTHER, SELFPAY ==
--- NOTE | 2023-03-07 10:00 | FL_ITS ---
WS: [id number] EXAMINATION: FL barium swallow [id number] REASON FOR EXAM: Chokes occasionally ORDER DATE: 03/07/2023 10:02 AM COMPARISON: None available. TECHNIQUE: The patient was able to swallow thick barium for the esophagram. Cine-fluoroscopy with rapid sequence imaging was obtained while the patient swallowed. The patient was also placed supine and in various recumbent positions during the exam. FINDINGS: There was a normal mucosal fold pattern in the upper esophagus. There is no sign of diverticula, webs or stricture. There was a mild delay in contrast emptying from the esophagus into the stomach. Dysmo tility as a result of tertiary contraction waves delayed esophageal emptying. There was a small slidi ng hiatal hernia. With provocative maneuvers no gastroesophageal reflux was initiated. The distal eso phageal mucosal pattern is unremarkable. FL/FL barium swallow [id number] IMPRESSION: 1. PRESBYESOPHAGUS, MILD CONTRAST RETENTION DUE TO DELAYED EMPTYING. 2. HIATAL HERNIA WITHOUT GASTROESOPHAGEAL REFLUX. FLUOROSCOPY TIME: 1min [id number] # OF SPOT FILMS: 8
== END 2023-03-07 09:59 | disposition home or self-care (01) ==
LOC: RAD 10:01
PROVIDERS: PCP Family Medicine; Visit Provider Internal Medicine Pulmonary Disease
DX: J44.9 Chronic obstructive pulmonary disease, unspecified (principal); R13.10 Dysphagia, unspecified; K44.9 Diaphragmatic hernia without obstruction or gangrene; K22.89 Other specified disease of esophagus
CPT/HCPCS: 74220

== ENCOUNTER 2023-03-13 10:01 | Outpatient (CLI) | payer MEDICARE, OTHER, SELFPAY ==
--- NOTE | 2023-03-13 10:05 | XR_ITS ---
WS: [id number] Chest 2 views, 03/13/2023 Clinical Data: cough Comparison: Portable chest, 08/26/2021 Findings: No nodules, masses or effusions are seen. The heart is normal. The pulmonary vascularity is not increased. No pneumonia or pneumothorax is seen. There are patchy bilateral midlung granulomas u nchanged. The aortic arch and descending thoracic aorta show calcification and mild tortuosity. XR/XR chest 2V* [id number] Impression: 1. Atherosclerosis. 2. Patchy bilateral midlung granulomas unchanged.
== END 2023-03-13 10:02 | disposition home or self-care (01) ==
LOC: RAD 10:05
PROVIDERS: PCP Family Medicine; Visit Provider Family Medicine
DX: R05.9 Cough, unspecified (principal); R06.2 Wheezing; J84.10 Pulmonary fibrosis, unspecified
CPT/HCPCS: 71046

== ENCOUNTER 2023-03-28 12:53 | Outpatient (CLI) | payer MEDICARE, OTHER, SELFPAY ==
[2023-03-28 13:15] VITALS: PULSE 61; RESP 18; O2SAT 97
[2023-03-28] MEDS: albuterol 2.5 mg/3 mL Neb INHALATION (13:15)
[2023-03-28 13:20] VITALS: PULSE 60
== END 2023-03-28 12:54 | disposition home or self-care (01) ==
LOC: RT 12:55
PROVIDERS: PCP Family Medicine; Visit Provider Internal Medicine Pulmonary Disease
DX: J44.9 Chronic obstructive pulmonary disease, unspecified (principal)
CPT/HCPCS: 83880; 85025; 86140; 94060; 94618; 94726; 94729; J7613

== ENCOUNTER → 2023-04-29 08:24 | Outpatient (BNVA) | payer MEDICARE, OTHER, SELFPAY | PROVIDERS: PCP Family Medicine; Visit Provider Family Medicine | DX: E78.5 Hyperlipidemia, unspecified (principal); I10 Essential (primary) hypertension | CPT/HCPCS: 80053; 80061 ==

== ENCOUNTER → 2023-06-03 09:36 | Outpatient (BNVA) | payer MEDICARE, OTHER, SELFPAY | PROVIDERS: PCP Family Medicine; Visit Provider Internal Medicine Pulmonary Disease | DX: J21.9 Acute bronchiolitis, unspecified (principal); R60.9 Edema, unspecified; Z77.22 Contact with and (suspected) exposure to environmental tobacco smoke (acute) (chronic); E66.9 Obesity, unspecified; Z68.32 Body mass index [BMI] 32.0-32.9, adult | CPT/HCPCS: 99214 ==

== ENCOUNTER → 2023-10-14 09:43 | Outpatient (BNVA) | payer MEDICARE, OTHER, SELFPAY | PROVIDERS: PCP Family Medicine; Visit Provider Internal Medicine Pulmonary Disease | DX: J21.9 Acute bronchiolitis, unspecified (principal); R60.9 Edema, unspecified; G93.32 Myalgic encephalomyelitis/chronic fatigue syndrome; U09.9 Post COVID-19 condition, unspecified | CPT/HCPCS: 99214 ==

== ENCOUNTER → 2023-10-30 13:07 | Outpatient (BNVA) | payer MEDICARE, OTHER, SELFPAY | PROVIDERS: PCP Family Medicine; Visit Provider Family Medicine | DX: I10 Essential (primary) hypertension (principal); F32.A Depression, unspecified; E78.5 Hyperlipidemia, unspecified | CPT/HCPCS: 80053; 80061 ==

== ENCOUNTER → 2023-11-13 10:05 | Outpatient (BNVA) | payer MEDICARE, OTHER, SELFPAY | PROVIDERS: PCP Family Medicine; Visit Provider Family Medicine | DX: R30.0 Dysuria (principal) | CPT/HCPCS: 81000 ==

== ENCOUNTER → 2024-04-13 09:43 | Outpatient (BNVA) | payer MEDICARE, OTHER, SELFPAY | PROVIDERS: PCP Family Medicine; Visit Provider Internal Medicine Pulmonary Disease | DX: J21.9 Acute bronchiolitis, unspecified (principal); R60.9 Edema, unspecified; I10 Essential (primary) hypertension | CPT/HCPCS: 99214 ==

== ENCOUNTER → 2024-04-30 09:06 | Outpatient (BNVA) | payer MEDICARE, OTHER, SELFPAY | PROVIDERS: PCP Family Medicine; Visit Provider Family Medicine | DX: I10 Essential (primary) hypertension (principal); F32.A Depression, unspecified; E78.5 Hyperlipidemia, unspecified | CPT/HCPCS: 80053; 80061; 85025 ==

== ENCOUNTER 2024-05-12 09:26 | Outpatient (CLI) | payer MEDICARE, OTHER, SELFPAY ==
--- NOTE | 2024-05-12 09:36 | XRR_ITS ---
PROCEDURE INFORMATION: Exam: XR Left Knee Exam date and time: 05/12/2024 9:49 AM Age: 78 years old Clinical indication: Patient HX: Left knee pain after it popped on 05/01/24 stepping up a step; Additional info: Knee pain/ injury TECHNIQUE: Imaging protocol: Radiologic exam of the left knee. Views: 3 views. COMPARISON: CT angio abd aorta runof [id number] 09/04/2023 9:03 AM FINDINGS: Bones/joints: No fracture or dislocation. No acute osseous or joint abnormality. Slight medial compartment narrowing. Faint lateral chondrocalcinosis. Soft tissues: Normal. XR/XR knee LT 3V* [id number] IMPRESSION: Mild degenerative changes.
== END 2024-05-12 09:27 | disposition home or self-care (01) ==
LOC: RAD 09:27
PROVIDERS: PCP Family Medicine; Visit Provider Family Medicine
DX: M25.562 Pain in left knee (principal)
CPT/HCPCS: 73562

== ENCOUNTER 2024-05-29 12:47 | Outpatient (CLI) | payer MEDICARE, OTHER, SELFPAY ==
--- NOTE | 2024-05-29 12:52 | MR_ITS ---
WS: [id number] MRI LEFT KNEE NONCONTRAST TECHNIQUE: Axial PD, coronal PD fat sat, coronal PD, sagittal PD, and sagittal PD fat-sat images obta ined. CLINICAL INFORMATION: KNEE INJURY/SWELLING/POSSIBLE MCL TEAR COMPARISON: None. FINDINGS: Distal quadriceps and patellar tendons are intact. Moderate suprapatellar effusion. Prepatellar soft tissue edema. Moderate chondromalacia patella. Medial and lateral patellar retinaculum appear intact. Normal ACL and PCL. Normal lateral collateral ligament. Fibular head appears normal. Grade 1-2 injury medial collateral ligament with fluid and edema along the deep and superficial fibers which appears intact. Edema in the medial tibial plateau. Normal lateral meniscus. Peripheral extrusion of the medi al meniscus. Complex longitudinal bucket-handle type tear involving the posterior horn medial meniscu s. Blunting of the posterior horn. Small displaced fragment extending along the intercondylar notch a nterior to the PCL. MR/MR knee LT wo con* [id number] IMPRESSION: 1. ACL and PCL are intact. 2. Complex longitudinal bucket-handle type tear involving the posterior horn m edial meniscus with small displaced fragment extending along the intercondylar notch anterior to the PCL. 3. Peripheral extrusion of the medial meniscus with edema in the tibial platea u. 4. Grade 1-2 injury medial collateral ligament. 5. Moderate chondromalacia patella with moderate suprasellar effusion. Outbridge grading: grade III: partial-thickness cartilage loss with focal ulcer ation
== END 2024-05-29 12:48 | disposition home or self-care (01) ==
LOC: RAD 12:47
PROVIDERS: PCP Family Medicine; Visit Provider Family Medicine
DX: S83.212A Bucket-handle tear of medial meniscus, current injury, left knee, initial encounter (principal); S89.82XA Other specified injuries of left lower leg, initial encounter; X58.XXXA Exposure to other specified factors, initial encounter; M22.42 Chondromalacia patellae, left knee
CPT/HCPCS: 73721

== ENCOUNTER → 2024-06-12 08:23 | Outpatient (BNVA) | payer MEDICARE, OTHER, SELFPAY | PROVIDERS: PCP Family Medicine; Visit Provider Physician Assistant | DX: S83.242A Other tear of medial meniscus, current injury, left knee, initial encounter; M17.12 Unilateral primary osteoarthritis, left knee; X58.XXXA Exposure to other specified factors, initial encounter | CPT/HCPCS: 20610; 73560; 73565; 99213; J3301 ==

== ENCOUNTER → 2024-07-29 10:32 | Outpatient (BNVA) | payer MEDICARE, OTHER, SELFPAY | PROVIDERS: PCP Family Medicine; Visit Provider Clinical Nurse Specialist Adult Health | DX: R30.0 Dysuria (principal); N39.0 Urinary tract infection, site not specified | CPT/HCPCS: 81000; 87086 ==

== ENCOUNTER → 2024-08-13 09:33 | Outpatient (BNVA) | payer MEDICARE, OTHER, SELFPAY | PROVIDERS: PCP Family Medicine; Visit Provider Physician Assistant | DX: S83.212A Bucket-handle tear of medial meniscus, current injury, left knee, initial encounter (principal); X58.XXXA Exposure to other specified factors, initial encounter; M17.12 Unilateral primary osteoarthritis, left knee; M94.262 Chondromalacia, left knee | CPT/HCPCS: 80053; 80061; 81000; 83036; 99213 ==

== ENCOUNTER 2024-11-13 11:32 | Outpatient (RCR) | payer MEDICARE, OTHER, SELFPAY | END 2024-11-24 23:59 | disposition home or self-care (01) | LOC: APT 11:32 | PROVIDERS: Visit Provider Student in an Organized Health Care Education/Training Program | DX: M17.12 Unilateral primary osteoarthritis, left knee (principal) | CPT/HCPCS: 97110; 97161 ==

== ENCOUNTER 2024-11-25 06:00 | Outpatient (RCR) | payer MEDICARE, OTHER, SELFPAY | END 2024-12-25 23:59 | disposition home or self-care (01) | LOC: APT 06:00 | PROVIDERS: PCP Family Medicine; Visit Provider Student in an Organized Health Care Education/Training Program | DX: M17.12 Unilateral primary osteoarthritis, left knee (principal) | CPT/HCPCS: 97110; 97140 ==

== ENCOUNTER 2024-12-26 06:30 | Outpatient (RCR) | payer MEDICARE, OTHER, SELFPAY | END 2025-01-22 23:59 | disposition home or self-care (01) | LOC: APT 06:30 | PROVIDERS: PCP Family Medicine; Visit Provider Student in an Organized Health Care Education/Training Program | DX: M17.12 Unilateral primary osteoarthritis, left knee (principal) | CPT/HCPCS: 97110; 97140 ==

== ENCOUNTER → 2025-01-15 12:40 | Outpatient (BNVA) | payer MEDICARE, OTHER, SELFPAY | PROVIDERS: PCP Family Medicine; Visit Provider Family Medicine | DX: J11.1 Influenza due to unidentified influenza virus with other respiratory manifestations (principal) | CPT/HCPCS: 87400; 87426 ==

== ENCOUNTER 2025-01-23 06:00 | Outpatient (RCR) | payer MEDICARE, OTHER, SELFPAY | END 2025-02-22 23:59 | disposition home or self-care (01) | LOC: APT 06:00 | PROVIDERS: PCP Family Medicine; Visit Provider Student in an Organized Health Care Education/Training Program | DX: M17.12 Unilateral primary osteoarthritis, left knee (principal) | CPT/HCPCS: 97110; 97140 ==

== ENCOUNTER → 2025-01-28 09:36 | Outpatient (BNVA) | payer MEDICARE, OTHER, SELFPAY | PROVIDERS: PCP Family Medicine; Visit Provider Family Medicine | DX: F32.A Depression, unspecified (principal); I10 Essential (primary) hypertension; E78.5 Hyperlipidemia, unspecified; R73.9 Hyperglycemia, unspecified | CPT/HCPCS: 80053; 80061; 83036; 85025 ==

== ENCOUNTER → 2025-05-24 15:48 | Outpatient (BNVA) | payer MEDICARE, OTHER, SELFPAY | PROVIDERS: PCP Family Medicine; Visit Provider Family Medicine | DX: N18.9 Chronic kidney disease, unspecified (principal); I10 Essential (primary) hypertension; R53.83 Other fatigue | CPT/HCPCS: 80053; 84439; 84443; 85025 ==

== ENCOUNTER → 2025-06-01 10:38 | Outpatient (BNVA) | payer MEDICARE, OTHER, SELFPAY | PROVIDERS: PCP Family Medicine; Visit Provider Family Medicine | DX: I10 Essential (primary) hypertension (principal); R10.9 Unspecified abdominal pain | CPT/HCPCS: 83880; 85025; 87077; 87086; 87184 ==

== ENCOUNTER → 2025-09-14 10:58 | Outpatient (BNVA) | payer MEDICARE, OTHER, SELFPAY | PROVIDERS: PCP Family Medicine; Visit Provider Family Medicine | DX: I10 Essential (primary) hypertension (principal) | CPT/HCPCS: 80048 ==

== ENCOUNTER → 2025-09-21 12:49 | Outpatient (BNVA) | payer MEDICARE, OTHER, SELFPAY | PROVIDERS: PCP Family Medicine; Referring Provider Family Medicine; Visit Provider Internal Medicine | DX: J21.9 Acute bronchiolitis, unspecified (principal); J98.4 Other disorders of lung; R91.8 Other nonspecific abnormal finding of lung field; J44.9 Chronic obstructive pulmonary disease, unspecified | CPT/HCPCS: 99214; Q3014 ==

== ENCOUNTER 2025-10-04 07:35 | Outpatient (CLI) | payer MEDICARE, OTHER, SELFPAY ==
--- NOTE | 2025-10-04 07:45 | USCV_ITS ---
Ashlee Knight Age: 79 Gender: F : 1945 Exam Date: 10/04/2025 07:56 Ordering Phys: Will Segura MD Technologist: TAHMINA Exam Location: [facility] [place] Indication: pulm htn BP: 110 / 62 HR: 57 Rhythm: Sinus Technical Quality: Adequate MEASUREMENTS (Male / Female) Normal Values 2D ECHO LV Diastolic Diameter PLAX 4.8 cm 4.2 - 5.9 / 3.9 - 5.3 cm IVS Diastolic Thickness 0.6 cm 0.6 - 1.0 / 0.6 - 0.9 cm IVS Systolic Thickness 0.8 cm LVPW Diastolic Thickness 0.9 cm 0.6 - 1.0 / 0.6 - 0.9 cm LVPW Systolic Thickness 0.9 cm LVOT Diameter 2.0 cm LV Ejection Fraction 2D Teich 32.9 % LV Ejection Fraction MOD 4C 66.8 % LV Ejection Fraction MOD 2C 63.5 % LV Ejection Fraction 2C AL 66.5 % LA Diameter 3.2 cm RA Systolic Volume 4C AL 43.8 ml RA Systolic Volume 4C MOD 42.1 ml LA Sys Volume AL 53.3 cm cubed LA Sys Volume Index AL 28.2 cm cubed/m squared Aorta at Sinotubular Diameter 2.4 cm IVC Diameter 1.4 cm M-MODE LA Ao Ratio MM 1.2 AV Cusp Separation MM 1.5 cm DOPPLER AV Peak Velocity 160.0 cm/s LVOT Peak Velocity 103.0 cm/s AV Area Cont Eq vti 1.8 cm squared AV Area Cont Eq pk 1.9 cm squared MV Peak Velocity 105.0 cm/s MV Area PHT 5.6 cm squared Mitral E to A Ratio 1.6 TV Peak Velocity 265.0 cm/s TR Peak Velocity 295.0 cm/s TR Peak Gradient 34.8 mmHg TV Peak E Velocity 70.0 cm/s PV Peak Velocity 103.0 cm/s FINDINGS Left Ventricle Normal left ventricular size and systolic function, EF of 60- 65%. No regional wall motion abnormalities. Right Ventricle Normal in size and function Right Atrium Normal in size Left Atrium Normal in size IA Septum Grossly normal Mitral Valve Mild mitral annular calcification. Trace mitral regurgitation Aortic Valve Structurally normal aortic valve. No significant stenosis or regurgitation Tricuspid Valve Mild tricuspid regurgitation. RVSP is 35-40mmHg. Mild pulmonary hypertension Pulmonic Valve Not well visualized Pericardium Normal Aorta Normal in size IVC Appears to be normal CONCLUSIONS LV systolic function is normal with EF of 60-65% Trace mitral regurgitation Mild tricuspid regurgitation. Mild pulmonary hypertension Jamison Garay MD (Electronically Signed) Final Date: 10 October 2025 10:35 S
== END 2025-10-04 07:36 | disposition home or self-care (01) ==
LOC: RAD 07:39
PROVIDERS: PCP Family Medicine; Visit Provider Family Medicine
DX: I27.20 Pulmonary hypertension, unspecified (principal); R06.00 Dyspnea, unspecified; R55 Syncope and collapse; I34.81 Nonrheumatic mitral (valve) annulus calcification; I07.1 Rheumatic tricuspid insufficiency
CPT/HCPCS: 93306

== ENCOUNTER 2025-11-03 07:45 | Outpatient (CLI) | payer MEDICARE, OTHER, SELFPAY ==
[2025-11-03 08:12] VITALS: PULSE 54; RESP 18; O2SAT 96
== END 2025-11-03 07:46 | disposition home or self-care (01) ==
LOC: RT 07:47
PROVIDERS: PCP Family Medicine; Visit Provider Internal Medicine
DX: J44.9 Chronic obstructive pulmonary disease, unspecified (principal)
CPT/HCPCS: 94060; 94726; 94729; J7613